=== PATIENT | female | born 1950 | race Caucasian/White ===

== ENCOUNTER → 2016-11-30 | Outpatient (CLI) | payer OTHER ==
--- NOTE | 2016-11-30 16:55 | DX ---
PA and lateral chest x-ray 1343 hours. History: Evaluate for upper lobe pneumonia. Findings: Comparison to November 05, 2016. Heart size and pulmonary vasculature remain within normal limits. The lungs are clear without consoli dation, effusion, or pneumothorax. Calcified granulomas are present right lower lobe posteriorly. Oss eous structures are unchanged. Impression: 1. No active cardiopulmonary disease seen.
== END ==
LOC: FIMAGING 13:52
PROVIDERS: ATTEND Physician Assistant
DX: R05 Cough (principal); R06.2 Wheezing; R06.02 Shortness of breath

== ENCOUNTER → 2018-06-05 | Outpatient (CLI) | payer OTHER | LOC: FIMAGING 07:50 | PROVIDERS: ATTEND Physician Assistant | DX: M48.062 Spinal stenosis, lumbar region with neurogenic claudication (principal); M53.86 Other specified dorsopathies, lumbar region; M51.86 Other intervertebral disc disorders, lumbar region ==

== ENCOUNTER 2018-10-29 11:22 | Emergency (ER) | payer OTHER ==
--- NOTE | 2018-10-29 12:01 | EDPHY ---
H & P Stated Complaint: L "tibial" pain x 2 weeks since fell down steps--"R/O DVT" Time Seen by Provider: 10/29/18 11:24 HPI/ROS: CHIEF COMPLAINT: Left calf pain and swelling HISTORY OF PRESENT ILLNESS: The patient presents to the ED with increasing left calf pain and swelling following a traumatic fall approximately 2 weeks ago. The patient has not had any evaluation today. She contacted her primary care provider who referred her to the emergency department for evaluation of a possible DVT. The patient does report some increasing ecchymosis and swelling noted to the left lower extremity. She has been ambulatory. She has a focal area of tenderness and swelling with slight surrounding erythema. REVIEW OF SYSTEMS: A comprehensive 10 point review of systems is otherwise negative aside from elements mentioned in the history of present illness. Source: Patient Exam Limitations: No limitations - Personal History Tetanus Vaccine Date: 4 YRS AGO - Medical/Surgical History Hx Asthma: No Hx Chronic Respiratory Disease: No Hx Diabetes: No Hx Cardiac Disease: No Hx Renal Disease: No Hx Cirrhosis: No Hx Alcoholism: No Hx HIV/AIDS: No Hx Splenectomy or Spleen Trauma: No Other PMH: HYPOTHYROID GERD BHAVANI, ABD ADHESIONS, MIGRAINES/PRINZ METAL ANGINA - Social History Smoking Status: Never smoked - Physical Exam Exam: General Appearance: Alert, no distress Eyes: Pupils equal and round no pallor or injection ENT, Mouth: Mucous membranes moist Respiratory: There are no retractions, lungs are clear to auscultation Cardiovascular: Regular rate and rhythm Gastrointestinal: Abdomen is soft and nontender, no masses, bowel sounds normal Neurological: 5/5 strength bilateral lower extremities, sensation intact bilaterally Skin: Extensive bruising noted to the left lower extremity, small area of erythema surrounding a likely small anterior left hematoma Musculoskeletal: Neck is supple nontender Extremities: Full range of motion bilateral lower extremities Constitutional: Initial Vital Signs Temperature (C) 36.7 C 10/29/18 11:27 Heart Rate 88 10/29/18 11:27 Respiratory Rate 16 10/29/18 11:27 Blood Pressure 163/102 H 10/29/18 11:27 O2 Sat (%) 98 10/29/18 11:27 O2 Delivery Mode Room Air Allergies/Adverse Reactions: hydrocodone bitartrate [From Vicodin] Allergy (Severe, Verified 07/29/15 12:53) Other-Enter Comments leflunomide [Leflunomide] Allergy (Severe, Verified 07/29/15 12:53) PERIPHERAL NEUROPATHY nitrofurantoin macrocrystalline [From Macrodantin] Allergy (Severe, Verified 03/09 12:53) Rash Penicillins Allergy (Severe, Verified 07/29/15 12:53) Rash Sodium Pentothal Allergy (Severe, Uncoded 07/29/15 12:53) Vomiting Soft Shellfish Allergy (Severe, Uncoded 07/29/15 12:53) Hives Home Medications: Medication Instructions Recorded Cephalexin [Keflex] 500 mg PO QID #28 cap 10/29/18 Lamotrigine 10/29/18 Levothyroxine 10/29/18 Propranolol HCl ER 10/29/18 Ranitidine HCl 10/29/18 Restasis Multidose 10/29/18 Vyvanse 10/29/18 Medical Decision Making - Diagnostics Imaging Results: Imaging Impressions Extremity Venous Study 10/29/18 11:24 Impression: 1. Negative for left lower extremity DVT. 2. Hematoma measuring 2.2 cm in the area of pain/left chin. Findings and recommendations discussed with Handy Cohen at 1242 hour, 10/29. Tibia/Fibula X-Ray 10/29/18 11:58 Impression: No acute osseous abnormality. ED Course/Re-evaluation: The patient presents to the ED for evaluation of leg pain and swelling in the setting of recent trauma. The patient is in no acute distress and is neurovascularly intact in the emergency department. The patient was taken for an ultrasound which demonstrates no evidence of a DVT. A extremity x-ray demonstrates no evidence of fracture. Patient does have a small hematoma noted on the left anterior valle with a very scant amount of surrounding erythema. She will be started on antibiotics. I have asked the patient to return to the ED for markedly increasing pain, redness, swelling or fever. Differential Diagnosis: Differential diagnosis considered includes cellulitis, abscess, hematoma, DVT, septic arthritis, fracture Departure - Departure Disposition: Home, Routine, Self-Care Clinical Impression: Cellulitis, leg Leg hematoma Qualifiers: Encounter type: initial encounter Laterality: left Qualified Code(s): S80.12XA - Contusion of left lower leg, initial encounter Condition: Good Instructions: Cellulitis (ED) Additional Instructions: 1. Keflex as directed for possible mild soft tissue infection. 2. Your ultrasound demonstrates no evidence of a DVT. 3. Your x-ray demonstrates no evidence of a fracture. 4. Please return to the ED for increasing pain, redness, swelling or fever. Referrals: Marian Palomino MD [Primary Care Provider] - As per Instructions
[2018-10-29 13:02] VITALS: BP 127/89
== END 2018-10-29 13:00 | disposition home or self-care (01) ==
DX: L03.116 Cellulitis of left lower limb (principal); S80.12XA Contusion of left lower leg, initial encounter; E03.9 Hypothyroidism, unspecified; K21.9 Gastro-esophageal reflux disease without esophagitis; W19.XXXA Unspecified fall, initial encounter; Y92.9 Unspecified place or not applicable; Y93.9 Activity, unspecified; Y99.9 Unspecified external cause status

== ENCOUNTER → 2019-01-15 | Outpatient (CLI) | payer OTHER | LOC: FIMAGING 09:50 | PROVIDERS: ATTEND Internal Medicine Endocrinology, Diabetes & Metabolism | DX: E04.2 Nontoxic multinodular goiter (principal) ==

== ENCOUNTER → 2019-01-30 | Outpatient (CLI) | payer OTHER | LOC: FIMAGING 13:50 | PROVIDERS: ATTEND Internal Medicine | DX: Z12.31 Encounter for screening mammogram for malignant neoplasm of breast (principal); Z80.3 Family history of malignant neoplasm of breast ==

== ENCOUNTER → 2019-04-07 | Outpatient (CLI) | payer OTHER ==
[~2019-04-07] MED LIST: GADOBUTROL 10 ML VIAL IVP ONE
== END ==
LOC: FIMAGING 09:50
PROVIDERS: ATTEND Family Medicine Sports Medicine
DX: S80.12XD Contusion of left lower leg, subsequent encounter (principal); M17.11 Unilateral primary osteoarthritis, right knee; Z91.81 History of falling
CPT/HCPCS: 82565-PO; A9585; C8912

== ENCOUNTER → 2019-05-15 | Outpatient (CLI) | payer OTHER | LOC: FIMAGING 11:52 ==